=== PATIENT | male | born 1965 | race Hispanic/Latino ===

== ENCOUNTER 2017-08-18 17:31 | Emergency (ER) | payer SELFPAY ==
[2017-08-18 18:03] VITALS: BP 134/83; PULSE 65; RESP 16; TEMP 99.3; O2SAT 99
[2017-08-18] MEDS ORDERED: TDAP Vaccine 0.5 mL Syr IM ONE (18:42)
--- NOTE | 2017-08-18 18:42 | ED PDOC ---
Arrival/HPI - General Chief Complaint: Abnormal Skin Integrity Time Seen by Provider: 08/18/17 18:41 Historian: Patient - History of Present Illness Narrative History of Present Illness (Text): 08/18/17 18:42 This 52 yo male presents to this ED c/o nose laceration x [employer] Past Medical History - Infectious Disease Hx of Infectious Diseases: None - Psychiatric Hx Substance Use: No - Anesthesia Hx Anesthesia: No Family/Social History Smoking Status: Unknown If Ever Smoked Hx Alcohol Use: Yes Frequency of alcohol use: Socially Hx Substance Use: No Allergies/Home Meds Allergies/Adverse Reactions: Allergies No Known Allergies Allergy (Verified 08/18/17 18:03) Physical Exam Vital Signs Temp Pulse Resp BP Pulse Ox 08/18/17 18:00 99.3 F 65 16 134/83 99 08/18/17 17:32 99.3 F 65 16 134/83 99 Medical Decision Making ED Course and Treatment: 08/18/17 21:02 Re-evaluation. Patient feels better. Discussed results and plan with patient who expresses understanding. All questions answered and there is agreement with the plan to discharge home with instructions. Patient stable for discharge. Return if symptoms persist or worsen. Re-evaluation Time: 21:02 Reassessment Condition: Re-examined, Improved - Medication Orders Current Medication Orders: Discontinued Medications Tetanus/Reduced Diphtheria/Acell Pertussis (Boostrix Vaccine Inj) 0.5 ml IM .ONCE ONE Stop: 08/18/17 18:43 Last Admin: 08/18/17 19:07 Dose: 0.5 ml [facility] Immunization Data Document 08/18/17 19:07 TIM (Rec: 08/18/17 19:07 TIM [facility] [id number] Immunization Data Vaccine Information Sheet Given Yes Immunization Registry Document 08/18/17 19:07 TIM (Rec: 08/18/17 19:07 TIM [facility] [id number] Immunization Registry Consent Date 08/18/17 - Procedure PROCEDURE NOTE (Text): 08/18/17 21:02 PROCEDURE: LACERATION REPAIR Performed by the emergency provider Location: nose Length: 2 cm Description: clean wound edges, no foreign bodies Distal CMS: Normal. No deficits. Neurovascularly intact. Anesthesia: Lidocaine 1% Preparation: The wound was cleaned with NS and [place]. The area was prepped and draped in the usual sterile fashion. Exploration: The wound was explored and no foreign bodies were found. Procedure: The wound was closed with Chromic gut 50, interrupted, single layer. There was good approximation. In total, 4 sutures were used. Post-Procedure: Good closure and hemostasis. The patient tolerated the procedure well and there were no complications. CSM remains intact. Post procedure dressing applied. Disposition/Present on Arrival - Present on Arrival Any Indicators Present on Arrival: No History of DVT/PE: No History of Uncontrolled Diabetes: No Urinary Catheter: No History of Decub. Ulcer: No History Surgical Site Infection Following: None - Disposition Have Diagnosis and Disposition been Completed?: Yes Diagnosis: Laceration of nose Disposition: HOME/ ROUTINE Disposition Time: 21:07 Patient Plan: Discharge Condition: GOOD Discharge Instructions (ExitCare): Care For Your Absorbable Stitches (ED), Facial Laceration (ED) Additional Instructions: Call private doctor or ENT for wound check in 2-3 days. Keep wound clean and dry for 2 days, then clean wound with soap and water only. Do Not use Peroxide or alcohol. Sutures are absorbable , so they do not need to be removed. Take medication as instructed. Prescriptions: Amoxicillin/Clavulanate [Augmentin 875 MG-125 MG] 1 tab PO BID #14 tab Referrals: Lisseth BRIGGS,Darvin Asencio MD [Primary Care Provider] - Follow up with primary Geovany Walden DO [Staff Provider] - Follow up with primary Forms: [employer] (Thai)
[2017-08-18] MEDS ORDERED: Amoxicillin-Clav 875-125 mg Tab PO STA (21:06)
== END 2017-08-18 21:29 | disposition home or self-care (01) ==
LOC: ED 17:31
DX: S01.21XA Laceration without foreign body of nose, initial encounter (principal); X58.XXXA Exposure to other specified factors, initial encounter; Z23 Encounter for immunization